=== PATIENT | female | born 1955 | race Caucasian/White ===

== ENCOUNTER 2022-07-15 15:31 | Outpatient (CLI) | payer BC ==
[2022-07-15 16:15] LABS: Hemoglobin 14.8 g/dL (12.0-15.5); Mean Corpuscular HGB CONC 34.5 g/dL (32.0-36.0); Mean Corpuscular Hemoglobin 31.4 pg (27.0-33.0); Mean Corpuscular Volume 91.1 fl (81.6-98.3); Mean Platelet Volume 9.3 fl (7.4-10.4); Platelet Count 322 10x3/uL (150-450); Red Blood Cell (RBC) Count 4.71 10x6/uL (3.90-5.03); White Blood Cell (WBC) Count 11.1 10x3/uL (3.5-10.5)
[2022-07-15 16:33] LABS: INR-International Normal Ratio 0.9; PTT 23.9 sec (22.0-33.0); Prothrombin Time 10.3 sec (9.5-12.1)
== END 2022-07-15 15:32 | disposition home or self-care (01) ==
LOC: LABBT 15:31
PROVIDERS: ATTEND Neurological Surgery
DX: Z01.812 Encounter for preprocedural laboratory examination (principal); M50.223 Other cervical disc displacement at C6-C7 level
CPT/HCPCS: 85027; 85610; 85730

== ENCOUNTER 2022-07-20 05:35 | Day surgery (SDC) | payer BC ==
[2022-07-19 12:31] VITALS: BMI 33.5
[2022-07-20] MEDS ORDERED: Neomycin-Polymyxin 1 ML AMP ONE (06:10)
[2022-07-20] MEDS ORDERED: Thrombin 5000 UNITS/5 ML VIAL ONE (06:10)
[2022-07-20] MEDS ORDERED: Fentanyl 250 MCG/5 ML VIAL ONE (06:19)
[2022-07-20] MEDS ORDERED: Midazolam HCl 2 mg/2 ml Vial ONE (06:19)
[2022-07-20] MEDS ORDERED: CEFAZOLIN 2 GM VIAL ONE (06:40)
[2022-07-20] MEDS ORDERED: Sodium Chloride 0.9% 100 ML ONE (06:40)
[2022-07-20] MEDS ORDERED: Scopolamine 1.5 mg/72 hour Patch ONE (06:49)
[2022-07-20] MEDS ORDERED: Lidocaine 1% PF 5 ML VIAL ONE (06:50)
[2022-07-20] MEDS ORDERED: Dexamethasone 20 MG/5 ML VIAL ONE (06:50)
[2022-07-20] MEDS ORDERED: PROPOFOL 200 MG/20 ML VIAL ONE (06:50)
[2022-07-20] MEDS ORDERED: PHENYLEPHRINE-NS 100 MCG/ML 10 ML SYRINGE ONE (06:50)
[2022-07-20] MEDS ORDERED: Ondansetron PF 4 MG/2 ML Vial ONE (06:50)
[2022-07-20] MEDS ORDERED: Rocuronium Bromide 10 MG/ML (10ML VIAL) ONE (06:50)
[2022-07-20] MEDS ORDERED: ePHEDrine 50 MG/ML VIAL ONE (06:50)
[2022-07-20] MEDS ORDERED: Metoclopramide HCl 10 MG/2 ML VIAL ONE (06:50)
[2022-07-20] MEDS ORDERED: Ketorolac Tromethamine 30 MG/ML VIAL ONE (06:50)
[2022-07-20] MEDS ORDERED: SUGAMMADEX SODIUM 200 MG/2 ML VIAL ONE (09:05)
[2022-07-20] MEDS ORDERED: Fentanyl 100 MCG/2 ML VIAL ONE ×2 (09:53→10:55)
== END 2022-07-20 13:43 | disposition home or self-care (01) ==
LOC: SDC 05:35
PROVIDERS: ATTEND Neurological Surgery
PROC: 0RG10A0 Fusion of Cervical Vertebral Joint with Interbody Fusion Device, Anterior Approach, Anterior Column, Open Approach (ICD-10-PCS; principal; 2022-07-20)
DX: M50.123 Cervical disc disorder at C6-C7 level with radiculopathy (principal); M48.02 Spinal stenosis, cervical region; M19.90 Unspecified osteoarthritis, unspecified site; E78.5 Hyperlipidemia, unspecified; Z86.718 Personal history of other venous thrombosis and embolism; Z87.891 Personal history of nicotine dependence; Z79.82 Long term (current) use of aspirin; Z88.1 Allergy status to other antibiotic agents; Z88.6 Allergy status to analgesic agent; Z91.018 Allergy to other foods
CPT/HCPCS: C1713; J1100; J1885; J2250; J2405; J2704; J2765; J3010; J3490